=== PATIENT | female | born 2000 | race African-American/Black ===

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

== ENCOUNTER 2022-09-24 21:30 | Emergency (ER) | payer MEDICAID ==
[~2022-09-24] VITALS: Ht 152.4 cm; Wt 50.0 kg
[2022-09-24] MEDS ORDERED: HYDROCODONE/ACETAMINOPHEN 5-325 MG TABLET PO ONE (22:15)
[2022-09-25 00:06] VITALS: BP 124/85
== END 2022-09-25 00:45 | disposition home or self-care (01) ==
LOC: EMS 21:31
DX: S90.416A Abrasion, unspecified lesser toe(s), initial encounter (principal); F12.90 Cannabis use, unspecified, uncomplicated; X58.XXXA Exposure to other specified factors, initial encounter; Y93.89 Activity, other specified; Y92.89 Other specified places as the place of occurrence of the external cause; Y99.8 Other external cause status
CPT/HCPCS: 99283

== ENCOUNTER 2023-02-15 10:52 | Emergency (ER) | payer MEDICAID ==
[~2023-02-15] VITALS: Ht 157.5 cm; Wt 68.2 kg
[2023-02-15 10:58] VITALS: TEMP 98.5
[2023-02-15] MEDS ORDERED: IBUPROFEN 600 MG TABLET PO ONE (12:15)
[2023-02-15] MEDS ORDERED: ACETAMINOPHEN/CODEINE 300-30 MG TABLET PO ONE (12:30)
[2023-02-15] MEDS ORDERED: ACET-2080 PO (12:55)
[2023-02-15] MEDS ORDERED: IBUP-1554 PO (12:55)
[2023-02-15 13:00] VITALS: BP 116/71; PULSE 90; RESP 18
== END 2023-02-15 13:01 | disposition home or self-care (01) ==
LOC: EMS 10:58
DX: S63.502A Unspecified sprain of left wrist, initial encounter (principal); S60.212A Contusion of left wrist, initial encounter; S00.03XA Contusion of scalp, initial encounter; F12.90 Cannabis use, unspecified, uncomplicated; M54.50 Low back pain, unspecified; W01.0XXA Fall on same level from slipping, tripping and stumbling without subsequent striking against object, initial encounter; Y93.89 Activity, other specified; Y92.89 Other specified places as the place of occurrence of the external cause; Y99.8 Other external cause status
CPT/HCPCS: 99283

== ENCOUNTER 2023-03-19 19:54 | Emergency (ER) | payer MEDICAID ==
[~2023-03-19] VITALS: Ht 152.4 cm; Wt 48.0 kg
[~2023-03-19 19:54] MED LIST changes: +ACET-2080 PO; +IBUP-1554 PO; -NOCURR
[2023-03-19 23:04] LABS: BASOPHILS % (AUTO) 0.3 % (0.0-2.0); EOSINOPHILS % (AUTO) 3.8 % (1.0-6.0); HEMATOCRIT 41.6 % (36-46); LYMPHOCYTES # (AUTO) 2.6 K/uL (1.0-4.8); LYMPHOCYTES % (AUTO) 24.8 % (22.0-44.0); MEAN CORPUSCULAR HEMOGLOBIN 28.9 pg (26.0-34.0); MEAN CORPUSCULAR HGB CONC 33.7 G/dL (31.0-37.0); MEAN CORPUSCULAR VOLUME 86 fL (80-100); MONOCYTES # (AUTO) 0.7 K/uL (0.1-1.0); MONOCYTES % (AUTO) 6.5 % (2.0-9.0); NEUTROPHILS # (AUTO) 6.7 K/uL (1.8-7.7); NEUTROPHILS % (AUTO) 64.6 % (40.0-70.0); PLATELET COUNT (AUTO) 406 K/uL (150-450); RED BLOOD CELL COUNT(AUTO) 4.85 MIL/uL (4.00-5.20); WHITE BLOOD COUNT (AUTO) 10.3 K/uL (4.5-11.0)
[2023-03-19 23:18] LABS: ANION GAP 9 mmol/L (8-16); CALCIUM, TOTAL 9.3 mg/dL (8.8-10.5); CARBON DIOXIDE 29 mmol/L (22-29); CHLORIDE 103 mmol/L (98-107); CREATININE 0.71 mg/dL (0.60-1.30); GLOMERULAR FILTR. RATE CALC > 60 mL/min (>60); GLUCOSE,RANDOM 70 mg/dL (70-110); POTASSIUM 3.4 mmol/L (3.5-5.1); SODIUM SERUM 141 mmol/L (136-145); UREA NITROGEN, BLOOD 9 mg/dL (7-18)
[2023-03-19 23:25] LABS: ALANINE AMINOTRANSFERASE 23 U/L (12-78); ALBUMIN 3.7 g/dL (3.4-5.0); ALKALINE PHOSPHATASE 68 U/L (46-116); ASPARTATE AMINOTRANSFERASE 21 U/L (15-37); BILIRUBIN,TOTAL 0.4 mg/dL (0.1-1.0); TOTAL PROTEIN, SERUM 8.3 g/dL (6.4-8.2)
[2023-03-20] MEDS ORDERED: AZITHROMYCIN 500 MG TABLET PO ONE (00:15)
[2023-03-20] MEDS ORDERED: LIDOCAINE/PF 1% 2 ML VIAL IM ONE (00:15)
[2023-03-20] MEDS ORDERED: CefTRIAXone SODIUM 1 GM/VIAL IM ONE (00:15)
[2023-03-20 00:20] VITALS: BP 129/69; PULSE 88; RESP 17; TEMP 97.9
== END 2023-03-20 01:05 ==
LOC: EMS 19:55
DX: T74.21XA Adult sexual abuse, confirmed, initial encounter (principal); F12.90 Cannabis use, unspecified, uncomplicated
CPT/HCPCS: 80053; 84703; 85025; 99283